=== PATIENT | female | born 1990 | race Caucasian/White ===

== ENCOUNTER 2021-12-29 18:34 | Emergency (ER) | payer SELFPAY ==
[~2021-12-29] VITALS: Ht 167.6 cm; Wt 61.2 kg
[~2021-12-29 18:34] MED LIST: CIPR-262 PO
--- NOTE | 2021-12-29 18:51 | NUR ---
Patient BIB [id number] c/o n/v and diarrhea since yesterday. Patient is A/Ox4, no SOB, no CP, no distress noted. Patient is able to walk with steady gait.
--- NOTE | 2021-12-29 19:20 | NUR ---
Patient's mother at bedside
--- NOTE | 2021-12-29 19:23 | NUR ---
Dr Mustafa at the bedside for MSE.
[2021-12-29] MEDS ORDERED: IV NORMAL SALINE 1000 ML BAG IV ONE (19:30)
[2021-12-29 19:54] LABS: HEMATOCRIT 44.1 % (31.2-41.9); MEAN CORPUSCULAR HEMOGLOBIN 30.3 uug (24.7-32.8); MEAN CORPUSCULAR VOLUME 88.1 fL (75.5-95.3); PLATELET COUNT (AUTO) 252 K/uL (179-408)
[2021-12-29 20:02] LABS: CREATININE 0.8 mg/dL (0.6-1.3); POTASSIUM 3.4 mmol/L (3.5-5.1)
[2021-12-29 20:07] LABS: BILIRUBIN,DIRECT 0.3 mg/dL (0.0-0.2); BILIRUBIN,TOTAL 1.2 mg/dL (0.2-1.0); TOTAL PROTEIN, SERUM 8.3 g/dL (6.4-8.2)
[2021-12-29 20:13] LABS: *BLOOD, URINE NEGATIVE (NEGATIVE); *CLARITY,URINE CLEAR (CLEAR); *COLOR,URINE YELLOW (YELLOW); *KETONES,URINE 4+ (NEGATIVE); *UROBILINOGEN,URINE 0.2 E.U./dl (NORMAL); LEUKOCYTE ESTERASE ,URINE NEGATIVE (NEGATIVE); NITRITE, URINE NEGATIVE (NEGATIVE); PH,URINE 7.5 (5.0-8.0); UGLUCOSE NEGATIVE (NEGATIVE)
[2021-12-29 20:21] LABS: *BILIRUBIN,URIN 1+ (NEGATIVE)
[2021-12-29] MEDS ORDERED: IV NS 1000 ML 1,000 ML IV ONE (21:45)
[2021-12-29] MEDS ORDERED: IBUPROFEN 600 MG TABLET ONE (21:55)
[2021-12-29] MEDS ORDERED: FAMOTIDINE 20 MG TABLET ONE (21:55)
[2021-12-29] MEDS ORDERED: ONDANSETRON 4 MG/2 ML VIAL ONE (21:55)
[2021-12-29] MEDS ORDERED: ONDANSETRON 4 MG/2 ML VIAL IV ONE (22:00)
[2021-12-29] MEDS ORDERED: IBUPROFEN 600 MG TABLET PO ONE (22:00)
[2021-12-29] MEDS ORDERED: FAMOTIDINE 20 MG TABLET PO ONE (22:00)
[2021-12-29] MEDS ORDERED: ONDA4TAB11 PO (22:14)
[2021-12-29] MEDS ORDERED: POTASSIUM CHLORIDE 20 MEQ TAB.PRT.SR PO ONE (22:15)
[2021-12-29 22:17] LABS: BACTERIA,URINE FEW /HPF (NONE SEEN); MUCUS,URINE MODERATE /LPF (0-FEW); SQUAMOUS EPITHELIAL CELL,UR MANY /HPF (NONE SEEN)
[2021-12-29] MEDS ORDERED: POTASSIUM CHLORIDE 20 MEQ TAB.PRT.SR ONE (22:21)
--- NOTE | 2021-12-29 22:30 | NUR ---
Patient discharged to home in stable condition. Written and verbal after care instructions given. Patient verbalizes understanding of instructions. Stressed follow up or return to ER for worsening s/s. Patient is A/Ox4, no SOB, no CP, no distress noted. Patient is able to walk with steady gait.
[2021-12-29 22:43] VITALS: BP 119/64
== END 2021-12-29 22:30 | disposition home or self-care (01) ==
LOC: ER 18:36
DX: R10.84 Generalized abdominal pain (principal); R11.2 Nausea with vomiting, unspecified; R19.7 Diarrhea, unspecified; E86.0 Dehydration; E87.6 Hypokalemia; R82.4 Acetonuria; Z88.2 Allergy status to sulfonamides; Z20.822 Contact with and (suspected) exposure to COVID-19
CPT/HCPCS: 36415; 80048; 80076; 81001; 83690; 84702; 85025; 87086; 87426; 96361; 96374; 99284; J2405; J7040 ×2; A4663